=== PATIENT | female | born 1970 | race Hispanic/Latino ===

== ENCOUNTER 2020-11-06 19:39 | Emergency (ER) | payer BC ==
--- OUTSIDE RECORDS SUMMARY | 2020-11-06 19:41 | XMS REPORT | Continuity of Care Document ---
:1970 Author Organization [facility] t Address [address] [place] [address] Care Team Providers Name Role Phone David Fitzgerald MD Attending Clinician Nick DIANA Attending Clinician Problems This patient has no known problems. Allergies, Adverse Reactions, Alerts This patient has no known allergies or adverse reactions. Medications Ordered Filled Start Stop Current Ordering Indication Dosage Frequency Signature Comments Components Source Medication Medication Date Date Medication? Clinician (SIG) Name Name Omeprazole Omeprazole 2019-0 Yes Sameer [address] [facility] [place] 30 minutes [facility] Prilosec Prilosec Yes Sameer [address] [facility] OTC [place] 30 minutes [facility] Prilosec Prilosec Yes [facility] [place] [facility] Procedures This patient has no known procedures. Encounters Start End Encounter Admission Attending Care Care Encounter Source Date/Time Date/Time Type Type Clinicians Facility Department ID 2020-11-02 2020-11-02 Emergency ANA Fitzgerald [id number] 20:03:00 21:14:00 Opal Bower [id number] [place] [id number] [place] [id number] 2020-10-11 2020-10-11 Outpatient [facility] [id number] [facility] 2020-07-10 2020-07-10 Outpatient [facility] [id number] [facility] 2020-06-29 2020-06-29 Outpatient [facility] [id number] [facility] 2020-04-20 2020-04-20 [facility] [id number] 16:00:11 16:22:58 Visit Rosalia Bower [id number] [place] [id number] [place] [id number] [address] 2020-04-06 2020-04-06 Outpatient [facility] [id number] [facility] 2020-03-13 2020-03-13 Outpatient [facility] [id number] [facility] 2020-03-10 2020-03-10 Outpatient [facility] [id number] [facility] 2020-03-02 2020-03-02 Outpatient [facility] [id number] [facility] 2020-02-03 2020-02-03 [facility] [id number] [facility] 14:20:00 14:20:00 t [facility] [email or web address] [facility] Results Test Description Test Time Test Comments Results Result Sourc e Comments SCR MAMM 2020-09-07 BILATERAL ISAAC 08:15:11 CAD DIGITAL Name: Rachel : 1970 Sex: F - SCR MAMM BILATERAL ISAAC CAD DIGITALBILATERAL DIGITAL SCREENING MAMMOGRAM 3D/2D WITH CAD: 09/07/2020LINICAL: Asymptomatic. Digital breast tomosynthesis was performed in addition to routine CC and MLO views. Current mammographic images were evaluated by [employer] CAD (computed aided detection) software. Comparison is made to exams dated 07/15/2019 mammogram, 07/03/2018 mammogram, and 07/02/2017 mammogram - [facility]. The tissue of both breasts is heterogeneously dense. This may lower the sensitivity of mammography. No suspicious mass, architectural distortion, malignant type calcification, or lymph node abnormality detected. IMPRESSION: NEGATIVEThere is no mammographic evidence of malignancy. Bilateral survey ultrasound to follow.Yovanny Mahmood M.D. ss/:09/07/2020 08:15:11 Entry: - 09/07/2020 08:30:40Imaging Technologist: Lorraine Bran , [facility] BI-RADS: 1 Negative BREAST ULTRASOUND 2020-09-07 BILATERAL 08:15:00 Name: Rachel : 1970 Sex: F - BREAST ULTRASOUND BILATERALULTRASOUND OF BOTH BREASTS: 09/07/2020omparison is made to exams dated 07/15/2019 mammogram, 07/03/2018 mammogram, and [facility] Color flow and real-time ultrasound of both breasts were performed. Garcia scale images of the real-time examination were reviewed. The breast tissue has heterogeneous background echotexture. Bilateral survey ultrasound demonstrates no suspicious sonographic abnormality. No axillary lymphadenopathy was seen..IMPRESSION: NEGATIVE There is no sonographic evidence of malignancy. Resume annual screening mammography in one year. Yovanny Mahmood M.D. ss/:09/07/2020 08:15:00 Entry: lc - 09/07/2020 08:32:14Imaging Technologist: Lorraine Bran , [facility] sent[facility] BIRADS 1-2 Combo FU Letter Ultrasound BI-RADS: 1 Negative SCR MAMM 2019-07-19 - SCR MAMM BILATERAL BILATERAL ISAAC 15:51:05 ISAAC CAD CAD DIGITAL DIGITALBILATERAL DIGITAL SCREENING MAMMOGRAM 3D/2D WITH CAD: 07/15/2019CLINICAL: Asymptomatic. Digital breast tomosynthesis was performed in addition to routine CC and MLO views. Current mammographic images were evaluated by either a [employer] M-Vu or a [employer] Image[employer]er CAD (computer aided detection system). Comparison is made to exams dated 07/03/2018 mammogram, 07/02/2017 mammogram, and 07/01/2016 [facility]. The tissue of both breasts is heterogeneously dense. This may lower the sensitivity of mammography. No suspicious mass, architectural distortion, malignant type calcification, or lymph node abnormality detected. Breast architecture is stable compared to prior exams.IMPRESSION: NEGATIVEThere is no mammographic evidence of malignancy. Resume annual screening mammography in one year. Dionisio Early M.D. qn/penrad:07/19/2019 15:51:05 Entry: cl - 07/19/2019 15:51:05Imaging Technologist: Ida JULIAN, [facility] BIRADS 1-2 Normal Mammogram BI-RADS: 1 Negative BREAST ULTRASOUND 2019-07-15 - BREAST ULTRASOUND BILATERAL 13:16:10 BILATERALULTRASOUND OF BOTH BREASTS: 07/15/2019CLINICAL: Dense breasts. Comparison is made to exams dated 07/15/2019 mammogram, 07/03/2018 ultrasound, 07/02/2017 ultrasound, 07/01/2016 ultrasound, 05/04/2015 ultrasound, and 03/16/2013 ultrasound - [facility]. Ultrasound of both breasts was performed. Garcia scale images of the real-time examination were reviewed. No abnormalities were seen sonographically in either breast. IMPRESSION: NEGATIVE There is no sonographic evidence of malignancy. Resume annual screening mammography in one year. Dionisio Early M.D. qn/:07/15/2019 13:16:10 Verse Writer: Meghan Arce , [facility]: BIRADS 1-2 Normal Ultrasound BI-RADS: 1 Negative BREAST ULTRASOUND 2018-07-03 - BREAST ULTRASOUND BILATERAL 08:36:48 BILATERALULTRASOUND OF BOTH BREASTS AND BOTH AXILLA: 07/03/2018CLINICAL: Supplemental Screening for Dense Breast. Comparison is made to exams dated 07/02/2017 mammogram, 07/02/2017 ultrasound, 07/01/2016 ultrasound, 05/04/2015 ultrasound, and 03/16/2013 ultrasound - [facility]. Real-time ultrasound of both breasts and both axilla was performed. No abnormalities were seen sonographically in either breast or either axilla. Clinical breast exam was unremarkable.IMPRESSION: NEGATIVE There is no sonographic evidence of malignancy. Patient has been informed that she has areas of dense breast tissue that could make it difficult to find a small cancer. A screening mammogram and supplemental ultrasound for dense breast tissue is recommended in 1 year.Priscilla Menon M.D. dm/:07/03/2018 08:36:48 Verse Writer: Jennie Martinez , [facility]: BIRADS 1-2 Combo FU Letter Ultrasound BI-RADS: 1 Negative SCR MAMM 2018-07-03 - SCR MAMM BILATERAL BILATERAL ISAAC 08:22:46 ISAAC CAD CAD DIGITAL DIGITALBILATERAL DIGITAL SCREENING MAMMOGRAM 3D/2D WITH CAD: 07/03/2018CLINICAL: Asymptomatic. Digital breast tomosynthesis was performed in addition to routine CC and MLO views. Current mammographic images were evaluated by either a [employer] M-Vu or a [employer] CAD (computer aided detection system). Comparison is made to exams dated 07/02/2017 mammogram, 07/01/2016 mammogram, and 05/04/2015 mammogram - [facility]. The tissue of both breasts is extremely dense, which lowers the sensitivity of mammography. No suspicious mass, architectural distortion, malignant type calcification, or lymph node abnormality detected. IMPRESSION: NEGATIVEUltrasound pending for additional evaluation. There is no mammographic evidence of malignancy. Priscilla mendes/marc:07/03/2018 08:22:46 Entry: - 07/07/2018 15:51:17Imaging Technologist: Aimee Saenz , [facility] BI-RADS: 1 Negative
[2020-11-06] MEDS ORDERED: DIAZEPAM 5 MG TABLET ONE (22:23)
[2020-11-06] MEDS ORDERED: ONDANSETRON 4 MG/2 ML VIAL ONE (22:24)
[2020-11-06] MEDS ORDERED: NA CHLORIDE 0.9% 1,000 ML ONE (22:24)
[2020-11-06] MEDS ORDERED: MORPHINE 2 MG/ML SYR ONE (22:24)
[2020-11-06] MEDS ORDERED: KETOROLAC 30 MG/ML INJ ONE (22:24)
[2020-11-06] MEDS ORDERED: dexAMETHasone 10 MG/ML VIAL ONE (22:24)
[2020-11-06 22:39] LABS: Absolute Lymphocytes (CBC) 1.6 K/uL (0.7-4.9); Basophils % 0.3 % (0-1.3); Hematocrit 39.3 % (36.0-45.0); Lymphocytes % 18.4 % (15.3-44.8); MPV 9.4 fL (7.6-11.3); RBC Red Blood Cell Count 4.74 M/uL (3.86-4.86)
[2020-11-06 22:48] LABS: BUN Blood Urea Nitrogen 15 mg/dL (7-18); Bicarbonate 30 mmol/L (21-32); Glucose Level 116 mg/dL (74-106); Potassium 4.8 mmol/L (3.5-5.1); Sodium Level 141 mmol/L (136-145)
--- NOTE | 2020-11-06 23:00 | EDPHYS ---
Physician Documentation [facility] Name: Bibi Vidal Age: 50 yrs Sex: Female : 1970 Arrival Date: 11/06/2020 Time: 19:42 Bed 26 Private MD: ED Physician Derrick Macdonald HPI: 11/06 21:57 This 50 yrs old Female presents to ER via Ambulatory with complaints of Back emily Pain. 21:57 The patient presents with pain that is acute, with no known mechanism of injury. The emily symptoms are located in the thoracic area. Onset: The symptoms/episode began/occurred 3 day(s) ago. Location: right trapezius. Associated signs and symptoms: The patient has no apparent associated signs or symptoms. The problem was sustained from unknown cause. Modifying factors: The patient symptoms are alleviated by remaining still, the patient symptoms are aggravated by any movement, bending. Severity of symptoms: At their worst the symptoms were mild, moderate, in the emergency department the symptoms are unchanged. 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 - Social history:: Smoking status: Patient denies any tobacco usage or history of. - Family history:: not pertinent. ROS: 21:57 Constitutional: Negative for fever, chills, and weight loss, Eyes: Negative for injury, emily pain, redness, and discharge, ENT: Negative for injury, pain, and discharge, Cardiovascular: Negative for chest pain, palpitations, and edema, Respiratory: Negative for shortness of breath, cough, wheezing, and pleuritic chest pain, Abdomen/GI: Negative for abdominal pain, nausea, vomiting, diarrhea, and constipation, Back: Negative for injury and pain, : Negative for injury, bleeding, discharge, and swelling, MS/Extremity: Negative for injury and deformity, Skin: Negative for injury, rash, and discoloration, Neuro: Negative for headache, weakness, numbness, tingling, and seizure, Psych: Negative for depression, anxiety, suicide ideation, homicidal ideation, and hallucinations, Allergy/Immunology: Negative for hives, rash, and allergies, Endocrine: Negative for neck swelling, polydipsia, polyuria, polyphagia, and marked weight changes, Hematologic/Lymphatic: Negative for swollen nodes, abnormal bleeding, and unusual bruising. 21:57 Neck: Positive for pain with movement, pain at rest. Exam: 21:57 Constitutional: This is a well developed, well nourished patient who is awake, alert, emily and in no acute distress. Head/Face: Normocephalic, atraumatic. Eyes: Pupils equal round and reactive to light, extra-ocular motions intact. Lids and lashes normal. Conjunctiva and sclera are non-icteric and not injected. Cornea within normal limits. Periorbital areas with no swelling, redness, or edema. ENT: Nares patent. No nasal discharge, no septal abnormalities noted. Tympanic membranes are normal and external auditory canals are clear. Oropharynx with no redness, swelling, or masses, exudates, or evidence of obstruction, uvula midline. Mucous membranes moist. Chest/axilla: Normal chest wall appearance and motion. Nontender with no deformity. No lesions are appreciated. Cardiovascular: Regular rate and rhythm with a normal S1 and S2. No gallops, murmurs, or rubs. Normal PMI, no JVD. No pulse deficits. Respiratory: Lungs have equal breath sounds bilaterally, clear to auscultation and percussion. No rales, rhonchi or wheezes noted. No increased work of breathing, no retractions or nasal flaring. Abdomen/GI: Soft, non-tender, with normal bowel sounds. No distension or tympany. No guarding or rebound. No evidence of tenderness throughout. Back: No spinal tenderness. No costovertebral tenderness. Full range of motion. Skin: Warm, dry with normal turgor. Normal color with no rashes, no lesions, and no evidence of cellulitis. MS/ Extremity: Pulses equal, no cyanosis. Neurovascular intact. Full, normal range of motion. Neuro: Awake and alert, GCS 15, oriented to person, place, time, and situation. Cranial nerves II-XII grossly intact. Motor strength 5/5 in all extremities. Sensory grossly intact. Cerebellar exam normal. Normal gait. Psych: Awake, alert, with orientation to person, place and time. Behavior, mood, and affect are within normal limits. 21:57 Neck: External neck: is normal, no acute changes, Trachea: is midline with no obvious abnormalities, no acute changes, ROM/movement: pain, limited range of motion, that is mild, Meningeal signs: are not present, Kernig's sign is negative, Brudzinski's sign is negative. 23:19 ECG was reviewed by the Attending Physician. [facility] Vital Signs: 20:20 BP 141 / 93; Pulse 75; Resp 16 S; Temp 97.5(TE); Pulse Ox 99% on R/A; Weight 69.85 kg ca1 (R); Height 5 ft. 2 in. (157.48 cm) (R); Pain 10/10; 22:34 BP 132 / 62; Pulse 61; Resp 18; Pulse Ox 100% on R/A; ak2 23:48 BP 126 / 64; Pulse 63; Resp 18; Pulse Ox 98% on R/A; ak2 20:20 Body Mass Index 28.17 (69.85 kg, 157.48 cm) ca1 MDM: 21:02 Patient medically screened. emily 22:00 Differential diagnosis: Fatigue Osteoarthritis sprain, vertebral fracture. Data emily reviewed: vital signs, nurses notes, lab test result(s), radiologic studies, CT scan. Data interpreted: curb builder: rate is 75 beats/min, rhythm is regular, Pulse oximetry: on room air is 99 %. Test interpretation: by ED physician or midlevel provider: ECG. Counseling: I had a detailed discussion with the patient and/or guardian regarding: the historical points, exam findings, and any diagnostic results supporting the discharge/admit diagnosis, lab results, radiology results, the need for outpatient follow up, for definitive care, a family practitioner, a neurosurgeon. 11/06 21:57 Order name: CBC with Diff; Complete Time: 22:58 [facility] 11/06 21:57 Order name: Chem 7; Complete Time: 22:58 [facility] 11/06 21:57 Order name: CT C Spine [facility] 11/06 21:57 Order name: EKG; Complete Time: 21:57 [facility] 11/06 21:57 Order name: EKG - Nurse/Tech [facility] EC:19 Rate is 53 beats/min. Rhythm is regular. QRS [place] is Normal. [place] interval is normal. QRS emily interval is normal. QT interval is normal. No Q waves. T waves are Normal. No ST changes noted. Clinical impression: NSR w/ Non-specific ST/T Changes, Sinus bradycardia, and No evidence of ischemia. Interpreted by me. Reviewed by me. Administered Medications: 22:09 Drug: Decadron - Dexamethasone 10 mg Route: IVP; Site: right antecubital; ak2 22:09 Drug: morphine 2 mg Route: IVP; Site: right antecubital; ak2 22:09 Drug: Zofran (Ondansetron) 4 mg Route: IVP; Site: right antecubital; ak2 22:09 Drug: Valium (diazepam) 5 mg Route: PO; ak2 22:10 Drug: NS 0.9% 1000 ml Route: IV; Rate: 1 bolus; Site: right antecubital; ak2 22:10 Drug: TORadol (ketorolac) 30 mg Route: IVP; Site: right antecubital; ak2 Disposition: 11/06/20 22:59 Discharged to Home. Impression: Radiculopathy, cervical region, Strain of muscle, fascia and tendon at neck level. - Condition is Stable. - Discharge Instructions: Cervical Radiculopathy, Muscle Strain, Cervical Sprain, [id number]-kx-Pcve, Cervical Radiculopathy, Lfzb-[id number], Radicular Pain. - Prescriptions for dexamethasone 2 mg Oral tablet - take 1 tablet by ORAL route 3 times per day; 15 tablet. Ibuprofen 600 mg Oral Tablet - take 1 tablet by ORAL route every 6 hours As needed take with food; 20 tablet. Tylenol- Codeine #3 300-30 mg Oral Tablet - take 2 tablets by ORAL route every 4-6 hours As needed; 26 tablet. Cyclobenzaprine 5 mg Oral Tablet - take 1 tablet by ORAL route 3 times per day As needed; 15 tablet. - Medication Reconciliation Form, Thank You Letter, Antibiotic Education, Prescription Opioid Use form. - Follow up: Private Physician; When: 2 - 3 days; Reason: Recheck today's complaints, Continuance of care, Re-evaluation by your physician. Follow up: Paulie Tillman; When: 2 - 3 days; Reason: Recheck today's complaints, Re-evaluation by your physician. - Problem is new. - Symptoms have improved. Signatures: Dispatcher [employer] EDMS Derrick Macdonald MD MD cha Acob, Cheryl, RN RN ca1 Faisal Cade ak2 Corrections: (The following items were deleted from the chart) 23:50 22:59 11/06/2020 22:59 Discharged to Home. Impression: Radiculopathy, cervical region; ak2 Strain of muscle, fascia and tendon at neck level. Condition is Stable. Discharge Instructions: Cervical Radiculopathy, Muscle Strain, Cervical Sprain, Blxc-mq-Dhsb, Cervical Radiculopathy, Bvhl-wg-Mtmi, Radicular Pain. Prescriptions for dexamethasone 2 mg Oral tablet - take 1 tablet by ORAL route 3 times per day; 15 tablet, Ibuprofen 600 mg Oral Tablet - take 1 tablet by ORAL route every 6 hours As needed take with food; 20 tablet, Tylenol-Codeine #3 300-30 mg Oral Tablet - take 2 tablets by ORAL route every 4-6 hours As needed; 26 tablet, Cyclobenzaprine 5 mg Oral Tablet - take 1 tablet by ORAL route 3 times per day As needed; 15 tablet. and Forms are Medication Reconciliation Form, Thank You Letter, Antibiotic Education, Prescription Opioid Use. Follow up: Private Physician; When: 2 - 3 days; Reason: Recheck today's complaints, Continuance of care, Re-evaluation by your physician. Follow up: Paulie Tillman; When: 2 - 3 days; Reason: Recheck today's complaints, Re-evaluation by your physician. Problem is new. Symptoms have improved. emily
--- NOTE | 2020-11-06 23:00 | ER ---
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 Reports lifting heavy boxes before the pain has started. Been at the doctor and was prescribed meds, no relief. Was prescribed steroids, Tylenol arthritis, cyclobenzaprine, nothing is helping and pain is constant. Coronavirus screen: Client denies travel out of the [place] in the last 14 days. At this time, the client does not indicate any symptoms associated with coronavirus-19. Ebola Screen: Patient negative for fever greater than or equal to 101.5 degrees Fahrenheit, and additional compatible Ebola Virus Disease symptoms Patient denies exposure to infectious person. Patient denies travel to an Ebola-affected area in the 21 days before illness onset. No symptoms or risks identified at this time. Initial Sepsis Screen: Does the patient meet any 2 criteria? No. Patient's initial sepsis screen is negative. Does the patient have a suspected source of infection? No. Patient's initial sepsis screen is negative. Risk Assessment: Do you want to hurt yourself or someone else? Patient reports no desire to harm self or others. Onset of symptoms was November 06, 2020. 20:20 Method Of Arrival: Ambulatory ca1 20:20 Acuity: KATHE 3 ca1 Triage Assessment: 23:49 General: Appears in no apparent distress. Behavior is calm, cooperative. Pain: Denies ak2 pain. Musculoskeletal: Range of motion: limited in right shoulder. 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 - Social history:: Smoking status: Patient denies any tobacco usage or history of. - Family history:: not pertinent. Screenin:49 Abuse screen: Denies threats or abuse. Denies injuries from another. Nutritional ak2 screening: No deficits noted. Tuberculosis screening: No symptoms or risk factors identified. Fall Risk None identified. Vital Signs: 20:20 BP 141 / 93; Pulse 75; Resp 16 S; Temp 97.5(TE); Pulse Ox 99% on R/A; Weight 69.85 kg ca1 (R); Height 5 ft. 2 in. (157.48 cm) (R); Pain 10/10; 22:34 BP 132 / 62; Pulse 61; Resp 18; Pulse Ox 100% on R/A; ak2 23:48 BP 126 / 64; Pulse 63; Resp 18; Pulse Ox 98% on R/A; ak2 20:20 Body Mass Index 28.17 (69.85 kg, 157.48 cm) ca1 ED Course: 19:42 Patient arrived in ED. ag3 20:24 Triage completed. ca1 20:24 Arm band placed on right wrist. ca1 21:02 Derrick Macdonald MD is Attending Physician. emily 21:57 Faisal Cade is Primary Nurse. ak2 22:13 CT C Spine In Process Unspecified. EDMS 22:59 Paulie Tillman MD is Referral Physician. emily 23:49 Patient has correct armband on for positive identification. Bed in low position. Call ak2 light in reach. 23:49 No provider procedures requiring assistance completed. IV discontinued. ak2 Administered Medications: 22:09 Drug: Decadron - Dexamethasone 10 mg Route: IVP; Site: right antecubital; ak2 22:09 Drug: morphine 2 mg Route: IVP; Site: right antecubital; ak2 22:09 Drug: Zofran (Ondansetron) 4 mg Route: IVP; Site: right antecubital; ak2 22:09 Drug: Valium (diazepam) 5 mg Route: PO; ak2 22:10 Drug: NS 0.9% 1000 ml Route: IV; Rate: 1 bolus; Site: right antecubital; ak2 22:10 Drug: TORadol (ketorolac) 30 mg Route: IVP; Site: right antecubital; ak2 Outcome: 22:59 Discharge ordered by MD. diaz 23:50 Discharged to home ambulatory. ak2 23:50 Condition: good 23:50 Discharge instructions given to patient, family, Prescriptions given X 4. 23:50 Patient left the ED. ak2 Signatures: Dispatcher [employer] Derrick Childress MD MD cha Gomez, Nicole davila3 Kristen Clement RN RN ca1 Faisal Cade ak2
[2020-11-07 00:28] VITALS: TEMP 97.5
[2020-11-07 00:31] VITALS: BP 126/64; O2SAT 98
--- NOTE | 2020-11-07 13:39 | RAD REPORT ---
EXAM DESCRIPTION: CT - C Spine Wo Con - 11/07/2020 6:51 am CLINICAL HISTORY: 50 years Female PAIN COMPARISON: None TECHNIQUE: Multiplanar imaging through the cervical spine without contrast. This exam was performe d according to our departmental dose-optimization program, which includes automated exposure control, adjustment of the mA and/or kV according to patient size and/or use of iterative reconstruction tech nique. DLP: 245 mGy*cm FINDINGS: No fracture. No subluxation. Disc spaces are preserved. Paraspinal soft tissues are unremarkable. Visualized lung is clear. Layering fluid in the sphenoid sinuses. IMPRESSION: No acute abnormality. No fracture or subluxation. Electronically signed by: Humza Gaona DO 11/06/2020 10:35 PM CDT Due to temporary technical issues with the PACS/Fluency reporting system, reports are being signed by the in house radiologists without review as a courtesy to insure prompt reporting. The interpreting radiologist is fully responsible for the content of the report.
--- NOTE | 2020-11-08 07:28 | EKG ---
Test Date: 2020-11-06 Test Time: 23:08:02 [employer]inder: ISIDRO MEASUREMENT RESULTS: Intervals: Rate: 53 WV: 148 QRSD: 82 QT: 442 QTc: 414 [place]: P: 54 WV: 148 QRS: 48 T: 71 INTERPRETIVE STATEMENTS: Sinus bradycardia Cannot rule out Anterior infarct, age undetermined Abnormal ECG No previous ECG available for comparison Electronically Signed On 11-08-20 07:26:35 CDT by Anjel Flowers
== END 2020-11-06 23:50 | disposition home or self-care (01) ==
LOC: ER 19:39
DX: S16.1XXA Strain of muscle, fascia and tendon at neck level, initial encounter (principal); M54.16 Radiculopathy, lumbar region; X58.XXXA Exposure to other specified factors, initial encounter
CPT/HCPCS: 93005; 85025; 80048; 36415; 72125; 96375; 96374; 99283; J1100; J2270; J7030; J2405